=== PATIENT | female | born 1965 | race Caucasian/White ===

== ENCOUNTER 2018-11-14 14:12 | Outpatient (CLI) | payer OTHER | END 2018-11-14 23:59 | disposition home or self-care (01) | LOC: LAB.N 14:12 | PROVIDERS: ATTEND Nurse Practitioner Gerontology | DX: Z79.899 Other long term (current) drug therapy (principal); I10 Essential (primary) hypertension | CPT/HCPCS: 36415; 84443 ==

== ENCOUNTER 2019-05-01 11:50 | Outpatient (CLI) | payer OTHER ==
--- NOTE | 2019-05-01 20:24 | XRAY Report ---
Reason: JOINT PAIN Procedure Date: 05/01/2019 Accession Number: [id number] / [id number] Procedure: XRN - Foot 2 View RT CPT Code: FULL RESULT: EXAM: RIGHT FOOT RADIOGRAPHY EXAM DATE: 05/01/2019 12:01 PM. CLINICAL HISTORY: Joint pain. COMPARISON: None. TECHNIQUE: 2 views. FINDINGS: Bones: Slight irregularity at the bases of the third, fourth, and fifth metatarsal bones may be the result of old trauma. No acute displaced fracture seen. Joints: Normal. No subluxations. Soft Tissues: Normal. No soft tissue swelling. IMPRESSION: Slight cortical irregularity at the bases of the third, fourth, and fifth metatarsal bones may result of old trauma but indeterminate. No definite acute displaced fracture seen. MRI or bone scan could be used to better evaluate for stress fractures if clinically indicated. [facility]
== END 2019-05-01 11:51 | disposition home or self-care (01) ==
LOC: DI.N 11:50
PROVIDERS: ATTEND Nurse Practitioner Gerontology
DX: M79.671 Pain in right foot (principal)

== ENCOUNTER 2019-06-21 08:00 | Outpatient (CLI) | payer OTHER ==
[2019-06-21 13:08] LABS: BASOPHILS # (AUTO) 0.1 10^3/uL (0.0-0.1); BASOPHILS % (AUTO) 0.8 %; EOSINOPHILS # (AUTO) 0.4 10^3/uL (0.0-0.7); EOSINOPHILS % (AUTO) 6.7 %; HGB - HEMOGLOBIN 12.1 g/dL (12.0-16.0); LYMPHOCYTES # (AUTO) 1.6 10^3/uL (1.5-3.5); LYMPHOCYTES % (AUTO) 24.2 %; MEAN CORPUSCULAR HEMOGLOBIN 28.5 pg (27.0-31.0); MEAN CORPUSCULAR HGB CONC 31.4 g/dL (32.0-36.0); MEAN CORPUSCULAR VOLUME 90.6 fL (81.0-99.0); MONOCYTES # (AUTO) 0.7 10^3/uL (0.0-1.0); NEUTROPHILS # (AUTO) 3.8 10^3/uL (1.5-6.6); NEUTROPHILS % (AUTO) 57.1 %; PLT - PLATELET COUNT 294 10^3/uL (130-450); RED BLOOD COUNT 4.25 10^6/uL (4.20-5.40); RED CELL DISTRIBUTION WIDTH 13.1 % (12.0-15.0); WHITE BLOOD COUNT 6.6 x10^3/uL (4.8-10.8)
[2019-06-21 13:42] LABS: ALBUMIN 4.1 g/dL (3.2-5.5); ALBUMIN/GLOBULIN RATIO 1.4 (1.0-2.2); ALKALINE PHOSPHATASE 42 IU/L (42-121); ALT ALANINE AMINOTRANSFERASE 15 IU/L (10-60); AST ASPARTATE AMINOTRANSFERASE 16 IU/L (10-42); BILIRUBIN,TOTAL 0.8 mg/dL (0.2-1.0); BUN - BLOOD UREA NITROGEN 12 mg/dL (6-20); CALCIUM 8.7 mg/dL (8.5-10.3); CARBON DIOXIDE - CO2 30 mmol/L (21-32); CHLORIDE 107 mmol/L (101-111); CHOL/HDL RATIO 3.2 (<4.4); CHOLESTEROL 192 mg/dL; CREATININE 0.7 mg/dL (0.4-1.0); GFR - MDRD 88 (>89); GLUCOSE 92 mg/dL (70-100); HDL CHOLESTEROL 60 mg/dL; LDL CHOLESTEROL,CALCULATED 119 mg/dL; SODIUM 144 mmol/L (135-145); VLDL CHOLESTEROL 13 mg/dL
== END 2019-06-21 23:59 | disposition home or self-care (01) ==
LOC: LAB.N 08:00
PROVIDERS: ATTEND Nurse Practitioner Gerontology
DX: I10 Essential (primary) hypertension (principal); Z79.899 Other long term (current) drug therapy
CPT/HCPCS: 36415; 80053; 80061; 83721; 84443; 85025

== ENCOUNTER 2019-07-04 11:34 | Outpatient (CLI) | payer OTHER | END 2019-07-04 23:59 | disposition home or self-care (01) | LOC: LAB.N 11:34 | PROVIDERS: ATTEND Nurse Practitioner Gerontology | DX: E87.6 Hypokalemia (principal) | CPT/HCPCS: 36415; 84132 ==

== ENCOUNTER 2021-02-06 09:47 | Outpatient (CLI) | payer OTHER ==
[2021-02-06 10:29] VITALS: BP 136/91
--- NOTE | 2021-02-06 10:29 | SLEEP CARE CONSULTATION ---
Information from patient questionnaire entered by Daily Aldrich. I have reviewed and concur with the information entered by Daily Aldrich. This document represents the service I personally performed and the decisions made by me, Elizabeth Monterroso ARNP. History of Present Illness Service Date and Time: 02/06/2021 0947 Reason for Visit: New patient Chief Complaint: reports: Unrefreshed sleep (sometimes), Snoring, Excessive daytime sleepiness, Observed pauses in breathing Date of Onset: whole adult life Usual bedtime: 10 pm Time it takes to fall asleep: almost immediately Snores at night: Yes Observed to quit breathing while asleep: Yes Sleeps alone due to snoring: Yes Number of times waking at night: 2 Reasons for waking at night: reports: Bathroom. denies: Choking, Snoring, Gasping for air Toss, Turn, or Twitch while sleeping: No Recalls having dreams: Yes Usually gets out of bed at: 7-8 Feels refreshed in the morning: No (not all the time) Morning headache: No Sleepy or fatigued during the day: Yes Ever fallen asleep while driving: No Takes day naps: Yes (daily in afternoon for 30 minutes) Dreams during day naps: Yes Prior sleep studies: No Additional HPI information: I had the pleasure of seeing VI GARLAND today regarding the possibility of her having a sleep disorder. Her current complaints are snoring and excessive daytime sleepiness for her whole adult life. She feels she has sever sleep problems since she was a teenager. She has high blood pressure that has not reduced with significant weight loss. She snores and is tired all the time. Her son tells her she snores loudly. Her has told her she stops breathing when sleeping sometimes. She sometimes feels rested in the mornings, not consistent. She only gets up couple of times for the bathroom. 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 Patient is and lives in [place]. Have you smoked in the past 12 months: No Alcohol use: Yes Alcohol amount and frequency: 1/2 a glass about 2 times a month Caffeine use: Yes Caffeine amount and frequency: 2-4 cups of tea a day Family History Family history of sleep disordered breathing: No Allergies and Home Medications Drug allergies reviewed: Yes (Coumadin) Home medication list reviewed: Yes Allergy and home medication list: Verapamil Losartan Prevacid Aspirin, 81 mg diphehydramine, prn Tums, prn Review of Systems Cardiovascular: reports: high blood pressure Respiratory: reports: other (nasal allergies) Gastrointestinal: reports: nausea Urinary: reports: frequency Neurological: reports: other (stroke in 1998). denies: headaches Psychiatric: denies: anxiety, depression Ear/Nose/Throat: reports: nasal congestion. denies: tonsillectomy, wisdom teeth removed Endocrine: reports: sluggishness Immunologic: reports: allergies to food or environment (seasonal mostly) Physical Exam Blood Pressure: 136/91 Cuff size: wrist Heart Rate: 69 O2 Saturation: 98 Height: 5 ft 6 in Weight: 147 lb Body Mass Index: 23.7 BMI Classification: Healthy weight Nostrils: patent to airflow Mouth and throat: narrow oropharynx Soft palate: long Hard palate: Torus palatinus (very small) Uvula: normal Uvula visualization: 50% Mallampati Class II Tongue: normal in size Tonsils: 1+ Chin and jaw: normal size and position Neck: normal w/o lymphadenopathy or thyromegaly Heart: regular rate and rhythm Lungs: clear bilaterally Impression and Plan 1. Suspected Obstructive Sleep Apnea-Hypopnea Syndrome, as suggested by a history of loud and irregular snoring, observed cessation of breath while asleep, unrefreshed sleep, cognitive impairment, and excessive daytime sleepiness. Narrow oropharynx and obesity are common predisposing factors for obstructive sleep apnea-hypopnea syndrome. I recommend proceeding to polysomnography to confirm the diagnosis and to assess severity. If the patient has significant sleep disordered breathing, a manual CPAP titration study will also be performed to find the optimal treatment pressure. I informed the patient of what the sleep studies involve and after some discussion, obtained agreement to proceed. The pathophysiology of obstructive sleep apnea-hypopnea syndrome was discussed with the patient and health risks of cardiovascular and cerebrovascular disease if not treated. Risks of drowsy driving discussed in detail and patient advised to avoid long distance driving and to box puller at the first sign of drowsiness. Patient agreed to plan. * Schedule polysomnography +- manual CPAP titration study and return in 1-2 weeks after the study to discuss result and initiate therapy. * Avoid long distance driving or driving when feeling sleepy. * Avoid alcohol, sedative and muscle relaxant around bedtime. * Attempt to lose weight. * Review instructions provided by trained office staff on how to prepare for the sleep study. * Return for follow-up after sleep study completed. Counseling Topics: Weight control Visit Type: In Office Time Spent with Patient (minutes): 31 Provider Statement: I spent 100% of the Face to Face Visit with the patient with greater than 50% spent counseling the patient and coordination of care.
== END 2021-02-06 09:48 | disposition home or self-care (01) ==
LOC: SC 09:47
PROVIDERS: ATTEND Nurse Practitioner Family
DX: G47.10 Hypersomnia, unspecified (principal); G47.8 Other sleep disorders; R41.89 Other symptoms and signs involving cognitive functions and awareness; R06.81 Apnea, not elsewhere classified; R06.83 Snoring
CPT/HCPCS: 99203; 99212

== ENCOUNTER 2021-02-23 14:30 | Outpatient (CLI) | payer OTHER | END 2021-02-23 14:31 | disposition home or self-care (01) | LOC: SC 14:30 | PROVIDERS: ATTEND Nurse Practitioner Family | DX: G47.33 Obstructive sleep apnea (adult) (pediatric) (principal); R09.02 Hypoxemia | CPT/HCPCS: 95806 ==

== ENCOUNTER 2021-02-26 15:34 | Outpatient (CLI) | payer OTHER ==
--- NOTE | 2021-02-26 15:59 | SLEEP CARE CONSULTATION ---
Information from patient questionnaire entered by Janet Gary. I have reviewed and concur with the information entered by Janet Gary. This document represents the service I personally performed and the decisions made by me, Elizabeth Monterroso ARNP. History of Present Illness Service Date and Time: 02/26/20211533 Initial [employer] Sleepiness Scale score: 18 (in 2020) Current [employer] Sleepiness Scale score: 13 Additional HPI information: VI GARLAND returns for follow up and results of the recently performed home sleep study. I explained the pathophysiology behind obstructive sleep apnea. We then spent quite a bit of time discussing different treatment options. For mild obstructive sleep apnea, surgery and oral appliance are alternatives to nasal CPAP therapy but in moderate or severe cases, nasal CPAP is the most effective and reliable treatment. Because apnea is primarily in supine position, then positional management therapy could be effective. Methods discussed such as positioning with pillows, using a T-shirt with tennis balls in the back, and shown commercial products that have a pillow format on back to prevent supine sleep. I reviewed the impact of weight changes on sleep apnea and strongly recommended losing weight. After some discussion, the patient opted to go with the nasal CPAP therapy. Nasal autoCPAP set at 4-15 cmH20 will be ordered with rationale explained. A manual titration study will be ordered if unable to find optimal pressure with office adjustments. I explained how CPAP machine works with sample devices Respironics Dreamstation and ResBrandpotion [id number] and what to expect when using the machine. Using CPAP every night in order to get used to it was emphasized. Patient advised to put CPAP mask on before getting into bed so as not to fall asleep without CPAP. To assist acclimation to CPAP use, it could also be used for a short time during day while reading or watching TV. The patient was instructed to call the CPAP supplier to discuss any mechanical problem that may occur. If the mask given is uncomfortable or is difficult to keep on through the night even with adjustment, contact the CPAP supplier as many will replace with another mask style if notified before 30 days. If snoring or perceives is not getting enough air or too much air from the machine, notify this office. [facility] patient education PAP tips reviewed and given to patient. Patient counseled not drink alcohol less than 4 hours before bedtime as it can increase snoring and apnea. Patient was cautioned about risks of drowsy driving until sleepiness symptoms resolve. Sleep Study - Results Type of Sleep Study: Home sleep study Prior sleep studies: No Polysomnography/Home Sleep Study results: Physician Impression: The quality of the study is good. The length of the study is adequate (> 240 minutes). Please also see the tabulated and graphic data. 1. Obstructive Sleep Apnea-Hypopnea (ICD-10 G47.33), moderate, with an AHI of 20.4/hr and gopal SaO2 of 79%. During the study, the patient had 131 apneas (131 obstructive, 0 central, 0 mixed) and 30 hypopneas. The longest episode lasted 58.5 seconds. The respiratory events occurred more frequently during supine sleep (supine AHI was 31.0 and non-supine, 10.49). 2. Hypoxemia (ICD-10 R09.02), moderate, with the lowest oxygen saturation of 79 % and 21.8 minutes with SaO2 under 90%. Baseline oxygen saturation was normal (Average oxygen saturation was 93%). Allergies and Home Medications Home medication list reviewed: Yes (no new meds) Review of Systems Review of systems same as previous: Yes (no changes) Physical Exam Heart Rate: 62 O2 Saturation: 96 Height: 5 ft 6 in Weight: 149 lb Body Mass Index: 24.0 BMI Classification: Healthy weight Impression and Plan 1. Obstructive Sleep Apnea-Hypopnea Syndrome, moderate, with lowest oxygen sa turation of 79%. Obviously this is the cause of the patients symptoms of unrefreshed sleep, and excessive daytime sleepiness. Positive pressure therapy could benefit hypertension. As mentioned above, the patient will be started on nasal autoCPAP therapy with pressure set at 4-15 cmH2O. A manual titration study will be completed if unable to find optimal treatment pressure with office adjustments. Compliance guidelines also reviewed. A copy of compliance guidelines will be given for reference at check out. Because the apnea is more severe supine, I instructed to avoid sleeping supine using pillow positioning until able to start CPAP use. 2. Hypoxemia, moderate, with the lowest oxygen saturation of 79 % and 21.8 minutes with SaO2 under 90%. Her baseline oxygen saturation was normal with an average oxygen saturation of 93%. * Nasal auto CPAP therapy, pressure at 4-15 cm H2O. * Attempt to lose weight. * Avoid alcohol consumption near bedtime. * Avoid supine sleep until using CPAP. * The patient is again cautioned about driving until sleepiness completely resolves. * Return one month after CPAP obtained. I will assess response to therapy and compliance at that time. Counseling Topics: Weight control Visit Type: In Office Time Spent with Patient (minutes): 20 Provider Statement: I spent 100% of the Face to Face Visit with the patient with greater than 50% spent counseling the patient and coordination of care.
== END 2021-02-26 15:35 | disposition home or self-care (01) ==
LOC: SC 15:34
PROVIDERS: ATTEND Nurse Practitioner Family
DX: G47.33 Obstructive sleep apnea (adult) (pediatric) (principal); R09.02 Hypoxemia
CPT/HCPCS: 99212; 99213

== ENCOUNTER 2021-05-21 12:11 | Emergency (ER) | payer OTHER ==
[2021-05-21] MEDS ORDERED: LORazepam 2 MG/ML VIAL IVP STA (12:49)
--- NOTE | 2021-05-21 13:02 | ED Physician Documentation ---
History of Present Illness - Stated complaint Stated Complaint: HIGH BP, POUNDING HEART - Chief complaint Chief Complaint: General - Additonal information Additional information: 55-year-old female presents the emergency department for evaluation of palpitations and concern of elevated blood pressure. She appears acutely anxious and is tearful/crying. She reports to me a history of vertebral artery dissection in 1998. 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 She also has a history of hypertension and sleep apnea. For management of the hypertension she takes verapamil and lisinopril. She was recently diagnosed with sleep apnea and when she started wearing the sleep apnea mask her primary care provider advised her to stop the hydrochlorothiazide. Patient typically checks her blood pressure once or twice a week and finds it is usually in the 140/80 range. Today she was playing with her grandson and did not feel right. She felt lightheaded and had a pounding heart. She checked her blood pressure and it was 167/107 which brings her now to the ER. She denies chest pain or shortness of air. Non-smoker. No alcohol use. Review of Systems Constitutional: reports: Reviewed and negative Nose: reports: Reviewed and negative Throat: reports: Reviewed and negative Cardiac: reports: Palpitations. denies: Chest pain / pressure, Pedal edema, Calf pain Respiratory: denies: Dyspnea, Cough GI: denies: Abdominal Pain, Nausea, Vomiting, Constipation, Diarrhea : denies: Dysuria Skin: reports: Reviewed and negative Musculoskeletal: reports: Reviewed and negative Neurologic: denies: Generalized weakness, Focal weakness, Near syncope, Syncope, Confused, Headache, Head injury PD PAST MEDICAL HISTORY - Present Medications Home Medications: Ambulatory Orders Medication Instructions Recorded Confirmed Potassium Chloride Oral Soln 40 meq PO DAILY #8 05/21/21 [Potassium Chloride] - Allergies Allergies/Adverse Reactions: Allergies Allergy/AdvReac Type Severity Reaction Status Date / Time warfarin [From Coumadin] Allergy Hives Verified 05/21/21 12:25 PD ED PE EXPANDED - General General: Alert, Anxious (tearful, crying) - Neck Neck: Supple w/out meningeal sx. No: Adenopathy - Cardiac Cardiac: Regular Rate, Radial strong equal, Pedal strong equal, Cap refill < 2 sec. No: Murmur Present - Respiratory Respiratory: Clear to ausultation kyara. No: Distress, Labored - Abdomen Abdomen: Normal Bowel sounds. No: Tender to palpation - Back Back: Normal exam - Derm Derm: Normal color, Warm and dry - Neuro Neuro: Alert and Oriented X 3, CNII-XII intact, Normal gait, Normal finger nose, Normal speech - GCS Eye Opening: Spontaneous Motor: Obeys Commands Verbal: Oriented Total: 15 - Psych Psych: Tearful, Anxious Results - Vitals Vitals: Vital Signs - 24 hr 05/21/21 12:17 Temperature 36.6 C Heart Rate 88 Respiratory 18 Rate Blood Pressure 168/107 H O2 Saturation 99 Oxygen O2 Source Room air - EKG (time done) 1320 Rate: Rate (enter#) (78) Rhythm: NSR Intervals: Normal SC, Prolonged QT QRS: Normal Ischemia: Non specific changes Compare to prior EKG: Old EKG unavailable Computer interpretation: Agree with computer - Labs Labs: Laboratory Tests 05/21/21 05/21/21 05/21/21 12:35 13:19 13:19 WBC 7.4 RBC 4.46 Hgb 12.4 Hct 37.9 MCV 85.0 MCH 27.8 MCHC 32.7 RDW 13.1 Plt Count 311 MPV 10.5 Neut # (Auto) 4.4 Lymph # (Auto) 1.8 Morgan # (Auto) 0.8 Eos # (Auto) 0.3 Baso # (Auto) 0.1 Absolute Nucleated RBC 0.00 Nucleated RBC % 0.0 Sodium 143 Potassium 2.4 L* Chloride 100 L Carbon Dioxide 32 Anion Gap 11.0 BUN 17 Creatinine 0.8 Estimated GFR (MDRD) 75 L Glucose 107 H Calcium 9.6 Total Bilirubin 0.7 AST 25 ALT 35 Alkaline Phosphatase 57 Troponin I High Sens 7.1 Total Protein 7.8 Albumin 4.7 Globulin 3.1 Albumin/Globulin Ratio 1.5 Lipase 66 H - Rads (name of study) CXR Radiology: Final report received (No acute cardiopulmonary process.) PD MEDICAL DECISION MAKING - ED course Complexity details: reviewed results, re-evaluated patient, d/w patient, d/w family ED course: 55-year-old female who carries a history of hypertension, previous vertebral artery dissection/stroke presents the emergency department with a sensation of palpitations and concerned that her blood pressure is elevated. On initial exam she appeared quite anxious had tearful eyes and was somewhat tachypneic. She required a lot of reassurance that the elevated blood pressure would not result in a new stroke. After some time she was able to calm. She did receive 1 mg of Ativan here in the emergency department. Screening labs do not show any acute worrisome abnormality sparing a moderate hypokalemia of 2.4. Should be noted that her EKG does show a prolonged QTC likely secondary to the hypokalemia. Chest x-ray was without any focal abnormalities and high-sensitivity troponin is not elevated. Her heart score is two. I did discuss the hypokalemia with the patient. She reports this has been a persistent problem for a long time. Because she cannot swallow the potassium pills and the liquid it made her sick she bought a supplement online that she thought would be adequate to manage it. Here in the emergency department she was given 40 of potassium orally and I will prescribe 40 orally for the next 4 to 5 days. She is to have her potassium rechecked with her PCP next week. We provided reassurance that her blood pressure though modestly elevated does not require additional treatment here in the emergency department. She will continue to follow-up with her primary care provider. Emergent return precaution s were discussed. Departure - Departure Disposition: Home, Self Care Clinical Impression: Hypokalemia, Anxiety Hypertension Qualifiers: Hypertension type: primary hypertension Qualified Code(s): I10 - Essential (primary) hypertension Condition: Stable Record reviewed to determine appropriate education?: Yes Instructions: Hypokalemia Dc Follow-Up: JACQUELYN PRAJAPATI ARNP [Primary Care Provider] - Prescriptions: Potassium Chloride Oral Soln [Potassium Chloride] 40 meq PO DAILY #8 Comments: Lauren jimenez are seen in the ER today for concerns of elevated blood pressure and palpitations. Your screening labs do not show any worrisome abnormalities with exception of a moderately low potassium of 2.4. Here in the emergency department you were given 40 mEq of potassium orally and I have prescribed 4 days of oral solution for you to take. I would like you to schedule follow-up with your primary care provider to have your potassium levels rechecked next week. When you arrived to the emergency department your blood pressure was somewhat elevated in the 160/100 range. After some calming and medication your blood pressure return to a more normal level of 145/80. At this time we do not need to institute new blood pressure medications. I do think some component of the el evated blood pressure was likely anxiety. If at any point you develop chest pain, feel severely short of air, cannot talk or speak normally or have fainting episodes please return immediately to the emergency department.
[2021-05-21 13:27] LABS: BASOPHILS # (AUTO) 0.1 10^3/uL (0.0-0.1); BASOPHILS % (AUTO) 0.8 %; EOSINOPHILS # (AUTO) 0.3 10^3/uL (0.0-0.7); EOSINOPHILS % (AUTO) 4.1 %; HCT - HEMATOCRIT 37.9 % (37.0-47.0); HGB - HEMOGLOBIN 12.4 g/dL (12.0-16.0); LYMPHOCYTES # (AUTO) 1.8 10^3/uL (1.5-3.5); LYMPHOCYTES % (AUTO) 23.8 %; MEAN CORPUSCULAR HEMOGLOBIN 27.8 pg (27.0-31.0); MEAN CORPUSCULAR HGB CONC 32.7 g/dL (32.0-36.0); MEAN PLATELET VOLUME 10.5 fL (7.9-10.8); MONOCYTES # (AUTO) 0.8 10^3/uL (0.0-1.0); MONOCYTES % (AUTO) 10.7 %; NEUTROPHILS # (AUTO) 4.4 10^3/uL (1.5-6.6); NEUTROPHILS % (AUTO) 60.3 %; PLT - PLATELET COUNT 311 10^3/uL (130-450); RED BLOOD COUNT 4.46 10^6/uL (4.20-5.40); RED CELL DISTRIBUTION WIDTH 13.1 % (12.0-15.0); WHITE BLOOD COUNT 7.4 x10^3/uL (4.8-10.8)
--- NOTE | 2021-05-21 13:42 | XRAY Report ---
PROCEDURE: Chest 1 View X-Ray INDICATIONS: HTN, palpitations TECHNIQUE: One view of the chest was acquired. COMPARISON: None FINDINGS: Surgical changes and devices: None. Lungs and pleura: No pleural effusions or pneumothorax. Lungs are clear. Mediastinum: Mediastinal contours appear normal. Heart size is normal. Bones and chest wall: No suspicious bony lesions. Overlying soft tissues appear unremarkable. IMPRESSION: No acute cardiopulmonary disease process. Reviewed by: Zoë Cruz MD, PhD on 05/21/2021 1:41 PM PDT Approved by: Zoë Cruz MD, PhD on 05/21/2021 1:41 PM PDT Station ID: [id number]
[2021-05-21 13:44] LABS: ALBUMIN 4.7 g/dL (3.2-5.5); ALBUMIN/GLOBULIN RATIO 1.5 (1.0-2.2); BILIRUBIN,TOTAL 0.7 mg/dL (0.2-1.0); CALCIUM 9.6 mg/dL (8.5-10.3); CREATININE 0.8 mg/dL (0.4-1.0); TOTAL PROTEIN 7.8 g/dL (6.7-8.2)
[2021-05-21 13:47] LABS: POTASSIUM 2.4 mmol/L (3.5-5.0)
[2021-05-21] MEDS ORDERED: POTASSIUM CHLORIDE 20 MEQ TABLET PO STA (13:52)
[2021-05-21] MEDS ORDERED: POTASSIUM CHLORIDE 20 MEQ/15 ML UDC PO STA (14:05)
[2021-05-21 16:28] VITALS: BP 153/104
== END 2021-05-21 15:15 | disposition home or self-care (01) ==
LOC: ED 12:11
DX: E87.6 Hypokalemia (principal); F41.9 Anxiety disorder, unspecified; I10 Essential (primary) hypertension; R06.82 Tachypnea, not elsewhere classified; R94.31 Abnormal electrocardiogram [ECG] [EKG]; Z86.73 Personal history of transient ischemic attack (TIA), and cerebral infarction without residual deficits; G47.30 Sleep apnea, unspecified
CPT/HCPCS: 36415; 71045; 80053; 83690; 84484; 85025; 93005; 96374; 99284; A9270; J2060

== ENCOUNTER 2021-05-22 10:46 | Outpatient (CLI) | payer OTHER ==
--- NOTE | 2021-05-22 11:34 | SLEEP CARE CONSULTATION ---
Information from patient questionnaire entered by Daily Aldrich. I have reviewed and concur with the information entered by Daily Aldrich. This document represents the service I personally performed and the decisions made by , Elizabeth Monterroso ARNP. History of Present Illness Service Date and Time: 05/22/2021 1046 Previous diagnosis: Moderate, Obstructive Sleep Apnea-Hypopnea Syndrome AHI: 20.4 Reason for follow up: first compliance Equipment type: CPAP Equipment obtained from: [employer] ([facility] inital supplies and replacement mask) Mask style: Nasal (over the nose) Backup mask available: No (will keep old mask when replaced) Last cushion change: 2 weeks Prior sleep studies: Yes Year and Where: 2020 - [facility] Type of Sleep Study: Home sleep study HPI additional information: VI GARLAND was diagnosed to have moderate, AHI 20.4, obstructive sleep apnea- hypopnea syndrome and returned today for CPAP therapy first compliance follow- up. CPAP Compliance Data - Data Reviewed with Patient Average duration of nightly device use: 6 hr 17 min Compliance rate %: 90 Current pressure setting (cmH2O): 4-15 (median 11.2, avg 13.6, max 14.5) Humidity settin Average residual AHI: 0.7 Subjective Missed days of use due to: reports: mask issues Patient concerns: reports: mask discomfort, condensation in mask/hose, nasal congestion, dry mouth, nose, throat (dry nose and mouth, increased humidity and got condensation). denies: aerophagia, air blowing in eyes, mask leak noise, epistaxis, other Observed to snore while using device: No Current pressure setting perceived as: too high (after getting back from bathroom) On therapy, patient: reports: sleeping better, awakening more refreshed, being more awake and alert during the day, more rested overall. denies: drowsiness while driving Initial [place] Sleepiness Scale score: 18 (in 2020) Current [place] Sleepiness Scale score: 7 Allergies and Home Medications Home medication list reviewed: Yes (no new meds) Review of Systems Review of systems same as previous: Yes (no changes) Physical Exam Heart Rate: 65 O2 Saturation: 98 Height: 5 ft 6 in Weight: 152 lb Body Mass Index: 24.5 BMI Classification: Healthy weight Impression and Plan 1. Obstructive Sleep Apnea-Hypopnea Syndrome, moderate, with good treatment compliance and excellent apnea control. On CPAP therapy, the patient has better sleep quality and is more rested overall. Patient requesting for pressure to stay at current pressure setting because it is comfortable at the onset. She has felt that the pressure was a little high when coming back from the bathroom. I advised her to ramp the pressure down by turning machine off and on so it will reset to lower temperature and allow her to fall asleep before it ramps back up to other pressures needed. She voiced understanding. She has had some difficulty with minimal nasal congestion and bad dry nose and mouth. She is taping her mouth closed but still gets dry mouth. She changed the humidifier temperature and this caused some condensation in the mask so she turned it back to original setting. Nasal congestion and oral dryness can be reduced with increasing the CPAP humidity as shown on sample device. The heated hose can be adjusted higher if condensation with higher humidity setting. Verbal instructions given on how to change humidity and heated hose settings with rationale explaining why to change. Patient voiced understanding. Patient's apnea severity and rationale for treatment to reduce apnea, improve sleep quality and reduce cardiovascular and cerebrovascular events was reviewed. I also reviewed the benefit of consistent device use of CPAP for hypertension. Patient is a healthy weight. * Continue auto CPAP pressure at 4-15 cmH2O * Notify me if snoring with mask or feeling that the pressure is too much or too little * Maintain a healthy weight * Call this office if any problems using CPAP * Return for follow up in 3 months, or sooner if concerns arise Counseling Topics: Spare mask, Weight control Visit Type: In Office Time Spent with Patient (minutes): 23 Provider Statement: I spent 100% of the Face to Face Visit with the patient with greater than 50% spent counseling the patient and coordination of care.
== END 2021-05-22 10:47 | disposition home or self-care (01) ==
LOC: SC 10:46
PROVIDERS: ATTEND Nurse Practitioner Family
DX: G47.33 Obstructive sleep apnea (adult) (pediatric) (principal)
CPT/HCPCS: 99212; 99213

== ENCOUNTER 2021-08-26 09:57 | Outpatient (CLI) | payer OTHER ==
--- NOTE | 2021-08-26 10:43 | SLEEP CARE CONSULTATION ---
Information from patient questionnaire entered by Ángela Bedolla. I have reviewed and concur with the information entered by Ángela Bedolla. This document represents the service I personally performed and the decisions made by , Elizabeth Monterroso ARNP. History of Present Illness Service Date and Time: 08/26/2021 0957 Previous diagnosis: Moderate, Obstructive Sleep Apnea-Hypopnea Syndrome AHI: 20.4 Reason for follow up: three month Equipment type: CPAP Equipment obtained from: [employer] Mask style: Nasal [facility]: Yes [facility] Type of Sleep Study: Home sleep study HPI additional information: VI GARLAND was diagnosed to have moderate, AHI 20.4, obstructive sleep apnea- hypopnea syndrome and returned today for CPAP therapy three month follow-up. Sleep Study - Results Type of Sleep Study: Home sleep study [facility] Yes [facility] CP[facility] Compliance Data - Data Reviewed with Patient Average duration of nightly device use: 6 hours 5 minutes Compliance rate %: 77 (57% last 30 days) Current pressure setting (cmH2O): 4-15 Average residual AHI: 0.7 Central apnea: .1 Obstructive apnea: .3 Hypopnea: .2 Compliance data discussion: Patient states she stopped using her mask in last month due to panic attacks and not being able to reduce nasal congestion with nasal sprays. She tried saline and two other OTC sprays (one with aloe in it). Subjective Missed days of use due to: reports: mask issues, other (Panic attacks) Patient concerns: reports: air blowing in eyes (when the mask gets knocked off kilter), nasal congestion, dry mouth, nose, throat, epistaxis, other (panic attacks, headache). denies: aerophagia, mask discomfort, mask leak noise, condensation in mask/hose Observed to snore while using device: No Current pressure setting perceived as: comfortable On therapy, patient: reports: sleeping better, more rested overall ( on nights she was able to keep on ). denies: drowsiness while driving Initial [place] Sleepiness Scale score: 18 (in 2020) Current [place] Sleepiness Scale score: 12 Allergies and Home Medications Home medication list reviewed: Yes (no changes) Review of Systems Review of systems same as previous: No (initial testing for tumor) Physical Exam Heart Rate: 79 O2 Saturation: 97 Height: 5 ft 7 in Weight: 150 lb Body Mass Index: 23.5 BMI Classification: Healthy weight Impression and Plan 1. Obstructive Sleep Apnea-Hypopnea Syndrome, moderate, with good treatment compliance and good apnea control. On CPAP therapy, the patient has better sleep quality and is more rested overall when she was able to tolerate the mask on for 5-6 hours. Patient has discontinued her CPAP use. She had a few incidents of panic attacks waking herself up and "ripping" the mask off of her face. She does not want to restart the CPAP and is asking about other options. Her AHI was 20.4, putting her in a moderate range but the nonsupine AHI was 10.49 on her sleep study. I discussed with her that she could try oral appliance in combination with positional therapy (avoid sleeping supine) to control her sleep apnea. I informed her that an oral appliance can also be used for snoring/sleep apena but often is not covered by insurance. Follow up is scheduled for 3 months to check effectiveness of treatment. A sleep study will be ordered if she has good response to check effectiveness of her therapy. Patient voiced understanding and agreement with plan. I will write to discontinue CPAP. Prescription for oral appliance made and give to patient. Patient's apnea severity and rationale for treatment to reduce apnea, improve sleep quality and reduce cardiovascular and cerebrovascular events was reviewed. I also reviewed the benefit of consistent device use of CPAP for hypertension. * Discontinue CPAP * Oral appliance with positional therapy to treat AMY * Maintain a healthy weight * Call this office if any problems * Return for follow up about 3 months, or sooner if concerns arise Counseling Topics: Sleeping position, Weight control Follow up with: Other (Dentist for oral appliance) Visit Type: In Office Time Spent with Patient (minutes): 22 Provider Statement: I spent 100% of the Face to Face Visit with the patient with greater than 50% spent counseling the patient and coordination of care.
== END 2021-08-26 09:58 | disposition home or self-care (01) ==
LOC: SC 09:57
PROVIDERS: ATTEND Nurse Practitioner Family
DX: G47.33 Obstructive sleep apnea (adult) (pediatric) (principal)
CPT/HCPCS: 99212; 99213

== ENCOUNTER 2021-08-27 08:05 | Outpatient (CLI) | payer OTHER | END 2021-08-27 08:06 | disposition home or self-care (01) | LOC: LAB 08:05 | PROVIDERS: ATTEND Internal Medicine Endocrinology, Diabetes & Metabolism | DX: E26.9 Hyperaldosteronism, unspecified (principal); E87.6 Hypokalemia; I10 Essential (primary) hypertension | CPT/HCPCS: 36415; 82088; 84132; 84244 ==

== ENCOUNTER 2021-08-31 10:01 | Outpatient (CLI) | payer OTHER | END 2021-08-31 10:02 | disposition home or self-care (01) | LOC: LAB 10:01 | PROVIDERS: ATTEND Hospitalist | DX: E26.9 Hyperaldosteronism, unspecified (principal); E87.6 Hypokalemia | CPT/HCPCS: 81599; 82530 ==

== ENCOUNTER 2021-10-23 10:19 | Outpatient (CLI) | payer OTHER ==
[2021-10-23 10:46] LABS: CALCIUM 9.3 mg/dL (8.5-10.3); CREATININE 0.9 mg/dL (0.4-1.0); POTASSIUM 2.7 mmol/L (3.5-5.0)
== END 2021-10-23 10:20 | disposition home or self-care (01) ==
LOC: LAB 10:19
DX: I15.2 Hypertension secondary to endocrine disorders (principal)
CPT/HCPCS: 36415; 80048

== ENCOUNTER 2021-10-27 12:35 | Outpatient (CLI) | payer OTHER | END 2021-10-27 12:36 | disposition home or self-care (01) | LOC: LAB 12:35 | DX: I15.2 Hypertension secondary to endocrine disorders (principal) | CPT/HCPCS: 81599; 82530; 82570 ==

== ENCOUNTER 2021-12-23 08:18 | Outpatient (CLI) | payer OTHER ==
[2021-12-23] MEDS ORDERED: IOVERSOL 320 100 ML VIAL IVP ONE ×2 (08:40→08:55)
--- NOTE | 2021-12-23 10:21 | CT Report ---
PROCEDURE: ABDOMEN W/WO INDICATIONS: HYPERTENSION DUE TO ENDOCRINE DISORDER CONTRAST: IV CONTRAST: Optiray 320 ml: 100 PO CONTRAST: *NO PO CONTRAST TECHNIQUE: Noncontrast 5 mm thick sections acquired from the diaphragms to the symphysis. 5 mm coronal and sagi ttal reformats were then performed. For radiation dose reduction, the following was used: automated exposure control, adjustment of mA and/or kV according to patient size. COMPARISON: None. FINDINGS: Image quality: Excellent. Lung bases: Lung bases are clear. Heart size is normal. Adrenal glands: There is an exophytic right adrenal nodule which is relatively superior in location, measuring approximately 1.2 x 2.0 cm in diameter. It is located just beneath the diaphragm. It has a relative washout are sensitive 81%, which is highly suggestive of adrenal adenoma (relative washout of greater than 40% is highly suggestive of adrenal adenoma). On noncontrast images, its Hounsfield m easurement is 19, increasing to 81.9 on portal venous phase imaging, and decreasing to 15.6 on delaye d imaging. No other adrenal nodules. Small hiatal hernia. Solid organs: Liver and spleen are normal in size and enhancement. Gallbladder is unremarkable Diogo iary system is non dilated. Pancreas enhances normally. Kidneys are normal in size and enhancement. No hydronephrosis or nephrolithiasis. Peritoneum and bowel: Unenhanced bowel loops are normal in caliber and wall thickness. No free flui d or air. Nodes and vessels: No retroperitoneal or mesenteric adenopathy by size criteria. Aorta and inferior vena cava are normal in size. Miscellaneous: No ventral hernias. Bones: No suspicious bony lesions. No acute vertebral body compression fractures. IMPRESSION: 1. 1.2 x 2.0 cm right adrenal adenoma. It is exophytic in location, superior to the rest of the right adrenal. 2. Otherwise unremarkable CT of the abdomen with and without contrast. Reviewed by: Jason Conde MD on 12/23/2021 10:20 AM [facility] Approved by: Jason Conde MD on 12/23/2021 10:20 AM [facility] Station ID: [id number]
== END 2021-12-23 08:19 | disposition home or self-care (01) ==
LOC: DI 08:18
DX: D35.01 Benign neoplasm of right adrenal gland (principal); I15.2 Hypertension secondary to endocrine disorders
CPT/HCPCS: 74178; Q9967

== ENCOUNTER 2023-06-27 23:04 | Emergency (ER) | payer OTHER ==
[2023-06-27 23:19] VITALS: BP 151/115; O2SAT 100
--- NOTE | 2023-06-28 00:38 | ED Physician Documentation ---
History of Present Illness - Stated complaint Stated Complaint: LT KNEE CAT SCRATCH - Chief complaint Chief Complaint: General - History obtained from History obtained from: Patient - Additonal information Additional information: Patient sustained scratch by her cat to her LLE 2-3 days ago. She did not think it an unusual or extensive injury but since the injury, most noticeably since this afternoon, she has had increasing redness, swelling at and surrounding the puncture wound where the cat clawed her. This is patients house cat; no odd behavior noted. Today she developed fevers with chills, sweats. Review of Systems Constitutional: reports: Fever, Chills, Sweats Endocrine: denies: Swollen lymph nodes PD PAST MEDICAL HISTORY - Past Medical History Cardiovascular: Hypertension Neuro: CVA - Past Surgical History Past Surgical History: No - Present Medications Home Medications: Ambulatory Orders Medication Instructions Recorded Confirmed Potassium Chloride Oral Soln 40 meq PO DAILY #8 05/21/21 [Potassium Chloride] Aspirin EC [Ecotrin] 325 mg PO DAILY #30 tablet 11/03/21 Magnesium Chloride 64 mg PO BID #60 tab 11/03/21 Potassium Bicarbonate 25 meq PO DAILY #30 tablet 11/03/21 [K-Effervescent] Amox/Clav 875/125 [Augmentin 1 tablet PO Q12H 10 Days #20 tablet 06/28/23 875/125 Tab] - Allergies Allergies/Adverse Reactions: Allergies Allergy/AdvReac Type Severity Reaction Status Date / Time warfarin [From Coumadin] Allergy Hives Verified 06/27/23 23:15 - Social History Does the pt smoke?: No Smoking Status: Never smoker Does the pt have substance abuse?: No PD ED PE NORMAL - Vitals Vital signs reviewed: Yes - General General: Alert and oriented X 3, No acute distress, Well developed/nourished PD ED PE EXPANDED - Extremities Extremities: Tenderness, Swelling. No: Limited ROM BRET LE visual: 1 - rash (confluent, raised, tender erythema that is hot to touch but without fluctuance and without palpable margins to suggest abscess. There is a central puncture wound; no pus d/c noted), swelling, tenderness Results - Vitals Vitals: Oxygen O2 Source Room air PD Medical Decision Making - ED course Complexity details: considered differential, d/w patient ED course: Focal cellulitis surrounding a 4-5mm linear tear/puncture wound (which has healed closed) over proximal anterior pre-tibial surface. 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 Given augmentin in ED and rx for same for infectious skin cellulitis. She does not have any c/o lymphadenopathy and the most proximal draining chain of nodes would be left inguinal crease, and there are no palpable nor tender nodes in this area (lymphadenopathy would lend to cat scratch disease diagnosis and would potentially alter abx of choice (zithromax, for ex) if lympadenitis were present). Return precautions are carefully reviewed and emphasized, and I impressed on patient a low threshold for returning to the ED. I instructed her to contact her PMD this morning when office opens to arrange appointment for recheck within 48 hours. Departure - Departure Disposition: 01 Home, Self Care Clinical Impression: Cellulitis Condition: Good Instructions: ED Infec Skin Cellulitis Prescriptions: Amox/Clav 875/125 [Augmentin 875/125 Tab] 1 tablet PO Q12H 10 Days #20 tablet Comments: You are given the first dose of an antibiotic (Augmentin) in the emergency dep artment, and a prescription for a 10-day course of this antibiotic has been electronically submitted to the [facility] pharmacy in [place]. Contact your primary care provider in the morning to arrange for a follow-up appointment so they can recheck of the area of infection and track its progress. If can be arranged, follow-up appointment in 2 or 3 days would be ideal, because the antibiotic will of had some chance to work and possibly result in improvement by the time of follow-up. Please return to the emergency department if your symptoms worsen in any way, or if you develop new/concerning signs/symptoms (such as swollen, painful lymph nodes (particularly in the left groin), red streaking from the area of infection, fever that does not respond to OTC medication such as tylenol). Forms: PCP List Discharge Date/Time: 06/28/23 01:38
[2023-06-28] MEDS ORDERED: AMOX/CLAV 875 MG/125 MG TABLET PO STA (01:24)
== END 2023-06-28 01:38 | disposition home or self-care (01) ==
LOC: ED 23:04
DX: S80.812A Abrasion, left lower leg, initial encounter (principal); L03.116 Cellulitis of left lower limb; W55.03XA Scratched by cat, initial encounter
CPT/HCPCS: 99282; 99283; A9270